=== PATIENT | female | born 1990 | race Caucasian/White ===

== ENCOUNTER → 2021-01-11 | Outpatient (REF) | payer OTHER | LOC: M LAB REF 19:05 | PROVIDERS: ATTEND Dermatology | DX: L72.0 Epidermal cyst (principal) ==

== ENCOUNTER 2023-12-27 23:32 | Emergency (ER) | payer OTHER, SELFPAY ==
[~2023-12-27] VITALS: Ht 160 cm; Wt 42.7 kg
[2023-12-28] MEDS ORDERED: SUBO8MIS SL (00:19)
[2023-12-28] MEDS ORDERED: CLON0.1D3 TD (00:21)
[2023-12-28] MEDS ORDERED: NEUR300C PO (00:21)
[2023-12-28] MEDS ORDERED: FLUO-290 PO (00:21)
[2023-12-28] MEDS ORDERED: WELLTAB40 PO (00:21)
[2023-12-28] MEDS ORDERED: CLONI1TA PO (00:25)
[2023-12-28 01:17] LABS: BASO # 0.1 10^3/uL (0.0-0.2); BASO % 0.6 % (0.0-1.0); EOS # 0.3 10^3/uL (0.0-0.5); EOS % 1.6 % (0.0-3.0); HEMATOCRIT 35.1 % (36.0-47.0); HEMOGLOBIN 12.6 g/dl (12.0-15.5); LYMPH # 2.6 10^3/uL (1.5-5.0); LYMPH % 14.2 % (24.0-44.0); MEAN CORPUSCULAR HEMOGLOBIN 31.7 pg (27.0-33.0); MEAN CORPUSCULAR HGB CONC 35.9 g/dl (32.0-36.5); MEAN CORPUSCULAR VOLUME 88.4 fl (80.0-96.0); MONO # 0.8 10^3/uL (0.0-0.8); MONO % 4.5 % (2.0-8.0); NEUTROPHILS # 14.2 10^3/uL (1.5-8.5); NEUTROPHILS % 78.8 % (36.0-66.0); PLATELET COUNT, AUTOMATED 387 10^3/uL (150-450); RED BLOOD COUNT 3.97 10^6/uL (4.00-5.40); WHITE BLOOD COUNT 18.1 10^3/uL (4.0-10.0)
[2023-12-28 01:44] LABS: BARBITURATES URINE NEGATIVE (NEGATIVE); BENZODIAZEPINES URINE NEGATIVE (NEGATIVE); CANNABINOIDS URINE NEGATIVE (NEGATIVE); COCAINE METABOLITE URINE NEGATIVE (NEGATIVE); METHADONE URINE NEGATIVE (NEGATIVE); OPIATES URINE NEGATIVE (NEGATIVE); PHENCYCLIDINE URINE NEGATIVE (NEGATIVE)
[2023-12-28 01:45] LABS: AMPHETAMINES LEVEL URINE POSITIVE (NEGATIVE)
[2023-12-28 01:48] LABS: ALKALINE PHOSPHATASE 74 U/L (46-116); ALT/SGPT 24 U/L (7.0-40); AST/SGOT 18 U/L (<34); BILIRUBIN,TOTAL 0.2 MG/DL (0.3-1.2); BLOOD UREA NITROGEN 17 MG/DL (9-23); CALCIUM LEVEL 9.5 MG/DL (8.5-10.1); CARBON DIOXIDE LEVEL 28 MMOL/L (20-31); CHLORIDE LEVEL 104 MMOL/L (98-107); CREATININE FOR GFR 0.83 MG/DL (0.55-1.30); GLOMERULAR FILTRATION RATE > 60.0 (>60); GLUCOSE, FASTING 103 MG/DL (60-100); POTASSIUM SERUM 3.9 MMOL/L (3.5-5.1); SODIUM LEVEL 137 MMOL/L (136-145); TOTAL PROTEIN 7.3 G/DL (5.7-8.2)
[2023-12-28 01:50] LABS: THYROID STIMULATING HORMONE 1.226 uIU/ML (0.55-4.78)
[2023-12-28 04:48] VITALS: BP 137/82; TEMP 98.3; O2SAT 100
[2023-12-28] MEDS ORDERED: NITR-67 PO (06:04)
== END 2023-12-28 04:49 | disposition home or self-care (01) ==
LOC: M ED 23:32
DX: N39.0 Urinary tract infection, site not specified (principal); Z03.89 Encounter for observation for other suspected diseases and conditions ruled out; I10 Essential (primary) hypertension; F41.9 Anxiety disorder, unspecified; F32.A Depression, unspecified; F11.11 Opioid abuse, in remission